=== PATIENT | male | born 1935 | race Hispanic/Latino ===

== ENCOUNTER 2017-10-06 20:36 | Inpatient (IN) | payer MEDICARE, MEDICAID, SELFPAY ==
[2017-10-06 20:37] VITALS: BP 168/99; PULSE 98; RESP 24; TEMP 36.3; O2SAT 97; BMI 29.2
--- NOTE | 2017-10-06 20:54 | EKG12_ITS ---
Test Reason : SOB Blood Pressure : / mmHG Vent. Rate : 096 BPM Atrial Rate : 096 BPM P-R Int : 152 ms QRS Dur : 096 ms QT Int : 354 ms P-R-T Axes : -23 104 075 degrees QTc Int : 447 ms Normal sinus rhythm Inferior ID, age undetermined, cannot be excluded Lateral ID, age undetermined, cannot be excluded Confirmed by MIRELLA SANTO, RABIA ([id number]), content editor ROLF MERLOS ([id number]) on 10/08/2017 2:15:29 PM Referred By: DR MOORE Confirmed By:RABIA VU MD
--- NOTE | 2017-10-06 20:59 | ED.RN ---
NO OLD EKGS IN MUSE.
--- NOTE | 2017-10-06 21:00 | RAD_ITS ---
STUDY: X-RAY CHEST REASON FOR EXAM: Male, 82 years old. Confusion and dyspnea. TECHNIQUE: Single AP portable view of the chest. COMPARISON: None. FINDINGS: The lungs are hyperexpanded. There are coarsened interstitial markings suggestive of mild chronic fibrosis. In the lung bases, and may be scarring, atelectasis, or even mild infiltrate especially on the left. No gross effusions. Normal size heart. Normal mediastinum and rasheeda. Normal visualized pulmonary arteries. There is atherosclerotic tortuosity of the aortic arch and descending thoracic aorta. Normal visualized thoracic spine. Normal visualized ribs, clavicles, and shoulders. There is no demonstrated abnormality of the visualized soft tissue structures of the upper abdomen. RAD/Chest 1 View (Portable) IMPRESSION: Probable COPD. Probable fibrosis and scarring in the lung bases especially the left. However since there are no prior studies, cannot exclude atelectasis or even infiltrates in the lung bases. Electronically Signed: Janusz Meadows MD at 21:25 EDT , Service support ,
[2017-10-06 21:10] VITALS: PULSE 95; RESP 24
[2017-10-06] MEDS: Ipratropium/Albuterol Sulfate 3 ML AMPUL.NEB INHALATION (21:10)
[2017-10-06 21:37] VITALS: BP 153/93; PULSE 93; RESP 24; O2SAT 94
[2017-10-06] MEDS: 0.9% Normal Saline 1,000 ML 150 ML IV (21:59)
[2017-10-06 22:01] VITALS: BP 164/99; PULSE 94; RESP 30; O2SAT 94
[2017-10-06 22:07] LABS: Absolute Lymphocyte Count 3.61 X10^3/ul (0.83-4.51); Absolute Neutrophil Count 19.7 X10^3/uL (2.0-7.7); Basophil# 0.02 X10^3/uL; Basophil% 0.1 % (0-1); Differential Indicated SCAN CRITERIA MET; Hematocrit 47.4 % (40-54); Hemoglobin 14.9 g/dl (13.0-16.5); Lymphocyte # 3.61 X10^3/ul (4.0); Lymphocyte % 14.4 % (19-41); Mean Corp Hgb Conc 31.4 g/gl (32-36); Mean Corpuscular Volume 82.7 fL (80-94); Mean Platelet Vol. 11.3 fl (6.2-12.0); Monocyte# 1.65 X10^3/uL; Monocyte% 6.6 % (0-10); Neutrophil # 19.73 X10^3/uL (2.7-7.7); Neutrophil % 78.7 % (47-70); POSITIVE COUNT NO; POSITIVE DIFFERENTIAL YES; POSITIVE MORPHOLOGY NO; Platelet Count 144 K/mm3 (150-450); RBC Distribution Width SD 45.4 fl (35.1-43.9); Red Blood Count 5.73 M/mm3 (4.6-6.2); White Blood Count 25.1 K/mm3 (4.4-11.0)
--- NOTE | 2017-10-06 22:09 | NURSING ---
daughter Anali Rossi called for an update on patient. Gave contact number [phone] and [phone]. wants update if patient is admitted or discharged
--- NOTE | 2017-10-06 22:10 | CT_ITS ---
STUDY: CT BRAIN WITHOUT CONTRAST REASON FOR EXAM: Male, 82 years old. Confusion RADIATION DOSAGE (If Supplied By Facility): CTDIvol = ( ) mGy, DLP = ( ) mGycm TECHNIQUE: Transaxial CT imaging of the brain was performed without administration of intravenous contrast material. Individualized dose optimization techniques were used for this CT. COMPARISON: None. Findings: Normal soft tissue structures. Normal calvarium. There is mild cerebral atrophy with widening of the extra-axial spaces and ventricular dilatation. There is decreased attenuation within the white matter tracks of the supratentorial brain, consistent with chronic microvascular ischemic disease changes. 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 Brainstem within normal limits. There is mild cerebellar atrophy. There is no intracranial hemorrhage. There are no findings of an acute ischemic infarction. Visualized paranasal sinuses are within normal limits. CT/Brain/Head without Contrast IMPRESSION: Chronic involutional changes of the brain. No definite acute abnormality. Electronically Signed: Janusz Meadows MD at 22:29 EDT , Service support ,
[2017-10-06 22:20] LABS: Anion Gap 8 (5-15); BUN 20 mg/dL (7-18); BUN/Creat Ratio 12.8 RATIO (10-20); Calcium,Total 8.8 mg/dL (8.5-10.1); Chloride 97 mmol/L (98-107); Creatinine, Serum 1.56 mg/dL (0.70-1.30); EST Glomerular Filtration Rate 46 mL/min (>60); Est Glom Filt Rate - Afr Amer 55 mL/min (>60); Estimated Creatinine Clearance 32.31 ml/min; Glucose 113 mg/dL (74-106); Sodium Level 135 mmol/L (136-145)
[2017-10-06 22:35] LABS: Differential Comment SCANNED; Platelet Estimate SLT DEC (ADEQ)
[2017-10-06 22:38] LABS: Bacteria 0 SEEN /hpf (None Seen); Mucous, Urine 0 SEEN /hpf (<or=2+)
[2017-10-06 22:41] LABS: Color, Urine Amber (Yellow); Glucose, Dipstick 100 mg/dl (Normal); Ketone-Dipstick 5 mg/dl (Negative); Leukocyte Esterase-Dipstick 25 /ul (Negative); Nitrite-Dipstick Positive (Negative); Occult Blood-Urine 50 /ul (Negative); Protein-Dipstick 30 mg/dl (Negative); Specific Gravity, Urine 1.025 (1.002-1.030); Urine Clarity Sl. Cloudy (Clear); Urine Urobilinogen 4 mg/dl (Normal)
[2017-10-06 22:45] LABS: Urine Bilirubin Dipstick 3 mg/dL (Negative)
[2017-10-06 22:54] LABS: Red Blood Cells-Urine 5-10 SEEN /hpf (0-5); White Blood Cells 0-5 SEEN /hpf (0-5)
[2017-10-06 22:55] LABS: Squamous Epithelial Cells - UA 0-5 SEEN /hpf (0-5)
[2017-10-06 23:00] VITALS: BP 162/94; PULSE 88; RESP 28; O2SAT 94
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
--- NOTE | 2017-10-06 23:08 | ED.RN ---
spoke with daughter obtained insurance information. She is requesting patient is not discharged home until she is here to pick him up for safety reasons
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
[2017-10-06 23:25] LABS: Allen Test POS; Base Excess 3 mmol/L (-2 to +2); Bicarbonate 28.8 mmol/L (22-26); Blood Gas Specimen Type ART; O2 Delivery Device Nasal Can; PO2 68 mmHG (75-100); SITE L Radial; SO2 92 % (95-99); Time Given 2313; Total Carbon Dioxide 30 mmol/L; pCO2 52.5 mmHg (35-45); pH 7.35 (7.35-7.45)
[2017-10-06] MEDS: MethylPREDNISolone 125 MG/2 ML Vial IV (23:26)
[2017-10-06] MEDS: levoFLOXacin IV 750 MG/150 ML BAG 100 MG IV (23:26)
[2017-10-06 23:29] VITALS: BP 162/94; PULSE 92; RESP 22; O2SAT 93
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
[2017-10-07] VITALS (8 sets, daily range): BP systolic 124–150; BP diastolic 75–105; PULSE 67–94; RESP 16–20; TEMP 36.2–37.1; O2SAT 84–95; BMI 29.6; BMI 29.7
[2017-10-07] MEDS: Ceftriaxone 1 GM/50 ML BAG IV (01:06)
[2017-10-07] MEDS: 0.9% Normal Saline 1,000 ML 150 ML IV (05:38)
[2017-10-07 06:13] LABS: Hemoglobin 14.2 g/dl (13.0-16.5); Mean Corp Hgb Conc 31.6 g/gl (32-36); Mean Corpuscular Hgb 26.2 pg (27.0-32.0); Mean Platelet Vol. 11.7 fl (6.2-12.0); Platelet Count 141 K/mm3 (150-450); RBC Distribution Width CV 15.1 % (11.6-14.6); RBC Distribution Width SD 46.1 fl (35.1-43.9); Red Blood Count 5.42 M/mm3 (4.6-6.2); White Blood Count 19.2 K/mm3 (4.4-11.0)
[2017-10-07 06:14] LABS: Scan Indicated on CBC? Y/N NO
[2017-10-07 06:20] LABS: Anion Gap 7 (5-15); BUN 20 mg/dL (7-18); BUN/Creat Ratio 14.8 RATIO (10-20); Calcium,Total 8.2 mg/dL (8.5-10.1); Chloride 102 mmol/L (98-107); Creatinine, Serum 1.35 mg/dL (0.70-1.30); EST Glomerular Filtration Rate 54 mL/min (>60); Est Glom Filt Rate - Afr Amer 65 mL/min (>60); Estimated Creatinine Clearance 35.93 ml/min; Glucose 156 mg/dL (74-106); Potassium 4.1 mmol/L (3.5-5.1); Sodium Level 138 mmol/L (136-145)
[2017-10-07] MEDS: Ipratropium/Albuterol Sulfate 3 ML AMPUL.NEB INHALATION ×2 (06:56→22:55)
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
[2017-10-07] MEDS: Enoxaparin 40 MG/0.4 ML Syringe SC (10:05)
--- NOTE | 2017-10-07 10:21 | CASEMGMT ---
Social Work Note SW left message for pt's daughter Anali asking if she will be in today to see pt or to have her call this worker back to discuss discharge planning. SW will wait to hear back from pt's daughter. SW will continue to follow to assist with discharge planning. Plan: THELMA Potts ONBOARDING SPECIALIST, RESERVOIR ENGINEERING CONSULTANT
[2017-10-07 10:43] LABS: Erythrocyte Sedimentation Rate 67 mm/hr (0-20)
[2017-10-07 11:11] LABS: Hemoglobin A1c 6.2 % (4.2-6.3)
[2017-10-07 11:26] LABS: Thyroid Stim Hormone (TSH) 0.51 uIU/mL (0.358-3.74)
--- NOTE | 2017-10-07 11:45 | CASEMGMT ---
Addendum entered by Raina Potts 10/07/17 14:45: Per pt's daughter, pt's PCP is Nina Lorenzo at [facility]. Original Note: Social Work Note SW received call from pt's daughter Anali. Anali provided new number for SW to call [phone] room [id number]. Per Anali she has three sisters but they are not involved in pt's life and it has always been just her and her dad. Pt states that pt's and then pt got worse. Anali states that pt doesn't want to take medications, will just take off and would prefer to live alone. Pt states that pt was living in [place], [place] in an apartment by himself. Anali states that the apartment had bed bugs and the apartment is to be exterminated this . Pt states that yesterday pt was supposed to drive to see daughter in [place] and that is when police found him on the road in his car. Anali states that she told the police to bring pt to hospital. Anali states that she would prefer for pt to live with her but that pt adamantly refuses to live with her. Anali states that she and her are currently looking for an apartment. Anali states that she currently living in Motels while searching for an apartment. Anali states that she and her and pt's friend all agree that pt would be better in an assisted living facility where he can have care but still be independent. SW explained that assisted living would be private pay for pt. SW explained that another option would be for pt to go to a SNF short term at first under Medicare or he can go to a SNF merchandiser seasonal under his Medicaid. Pt's daughter states understanding. She states that she would like a SNF in [place], [place]. SW verbally provided list of SNF in [place], [place]. Anali states that SNF would be the best option for pt at this time but states that pt will refuse to go anywhere. SW explained guardianship process to Anali and encouraged her to talk to pt's PCP to begin guardianship process. Anali states understanding. Anali states that pt currently has a CM through [employer]. Per Anali his CM is named Dylan and his number is [phone]. SW informed Anali that this worker will meet with pt to discuss discharge planning. Anali states that she is hoping to find a ride to Hospital today to visit pt. LEELA spoke with Dr. Salas about this. Dr. Salas states that pt is alert and orientated x3 and was able to answer questions correctly. SW informed Dr. Salas that this worker will be calling [employer] and can supply supervisor and other social workers to see if they have insight about situation. SW will see pt as well to determine discharge planning. Plan: THELMA Potts TRACTOR ENGINE ASSEMBLER, ACADEMIC HOSPITALIST
--- NOTE | 2017-10-07 12:17 | CASEMGMT ---
Social work Note LEELA met with pt to discuss discharge planning. SW introduced self and role at [facility]. Pt is alert and orientated x3 and answered questions appropriately. Pt states that he was living alone in an apartment and that he was previously independent with ADLs. Pt states that he has family and friends around him for support. Pt states that he was taking his medications and denied having recent confusion. Pt states that he was going to see his doctor when he took a wrong turn. Pt states that he wears oxygen at home and while he is sleeping. He denied additional DME. Pt states that he feels like he is able to take care of himself and that he would like to return to his apartment at discharge. SW explained to pt that his daughter Anali had some concerns about pt's safety and pt states that he would move in with his daughter. Pt denied additional needs or concerns at this time. SW placed a call to pt's daughter Anali and left a message for her updating her on this worker's conversation with pt. LEELA explained to Anali that pt is alert and orientated and answered questions appropriately and at this time denied placement stating that he would like to go back home or to live with his daughter. LEELA once again educated Anali on guardianship process and encouraged her to speak with pt's PCP to begin guardianship process. LEELA educated pt on Home Health services and suggested that Home Health may be an option for pt for detention, aides, or SW to meet with pt in his apartment. SW will continue to follow along to assist with discharge planning. Plan: TBD. Pt would like to return to his apartment at discharge or move in with his daughter Raina Potts DONKEY RIDE OPERATOR, MICROARRAY ANALYST
[2017-10-07] MEDS: Famotidine 20 MG Tablet PO (13:14)
[2017-10-07] MEDS: predniSONE 20 MG Tablet 40 MG PO (13:14)
[2017-10-07] MEDS: amLODIPine 10 MG Tablet PO (13:14)
[2017-10-07 13:20] LABS: Pathologist Review Reviewed
--- NOTE | 2017-10-07 14:40 | CASEMGMT ---
Social Work Note Dr. Salas informed this worker that she would like an APS report made on pt. SW placed a call to [facility] and spoke with Yessi Le and provided APS referral. Plan: TBStevie Potts AND RESCUE FIRE FIGHTER CRASH FIRE, BANQUET BARTENDER
[2017-10-07] MEDS: 0.9% Normal Saline 1,000 ML 75 ML IV (14:56)
[2017-10-08] VITALS (11 sets, daily range): BP systolic 127–145; BP diastolic 70–87; PULSE 64–84; RESP 16–21; TEMP 36.2–36.6; O2SAT 2–97
[2017-10-08] MEDS: 0.9% Normal Saline 1,000 ML 75 ML IV ×2 (05:46→17:58)
[2017-10-08 05:47] LABS: Hematocrit 41.5 % (40-54); Hemoglobin 12.9 g/dl (13.0-16.5); Mean Corp Hgb Conc 31.1 g/gl (32-36); Mean Corpuscular Hgb 26.2 pg (27.0-32.0); Mean Corpuscular Volume 84.2 fL (80-94); Mean Platelet Vol. 11.9 fl (6.2-12.0); Platelet Count 140 K/mm3 (150-450); RBC Distribution Width CV 15.3 % (11.6-14.6); RBC Distribution Width SD 46.7 fl (35.1-43.9); Red Blood Count 4.93 M/mm3 (4.6-6.2); White Blood Count 16.5 K/mm3 (4.4-11.0)
[2017-10-08 05:48] LABS: Scan Indicated on CBC? Y/N NO
--- NOTE | 2017-10-08 05:55 | RAD_ITS ---
STUDY: X-RAY CHEST REASON FOR EXAM: Male, 82 years old. Confusion. COPD. TECHNIQUE: Single AP portable view of the chest. COMPARISON: Comparison is made with prior study dated October 06, 2017. FINDINGS: Hyperinflation. Mild residual increased markings at the lung bases likely more prominent on the left side suggestive of scarring. There has been improvement as compared to prior study. There is no demonstrated pleural abnormality. There is borderline cardiomegaly. Normal mediastinum and rasheeda. Normal visualized pulmonary arteries. There is atherosclerotic tortuosity of the aortic arch and descending thoracic aorta. Normal visualized thoracic spine. Normal visualized ribs, clavicles, and shoulders. There is no demonstrated abnormality of the visualized soft tissue structures of the upper abdomen. RAD/Chest 1 View (Portable) IMPRESSION: Mild residual increased markings at the lung bases although there has been improvement. Electronically Signed: Ruiz Ratliff MD at 12:23 EDT Tel [phone], Service support ,
[2017-10-08 06:02] LABS: ALB/GLOB Ratio 0.6 RATIO (0.9-2.4); AST(SGOT) 14 U/L (15-37); Alanine Aminotransfer ALT/SGPT 17 U/L (16-61); Albumin, Serum 2.5 g/dL (3.2-5.0); Alkaline Phosphatase 85 U/L (45-117); Anion Gap 8 (5-15); BUN 22 mg/dL (7-18); BUN/Creat Ratio 22.4 RATIO (10-20); Calcium,Total 8.7 mg/dL (8.5-10.1); Chloride 107 mmol/L (98-107); Cholesterol 170 mg/dL (200); Creatinine, Serum 0.98 mg/dL (0.70-1.30); EST Glomerular Filtration Rate 78 mL/min (>60); Est Glom Filt Rate - Afr Amer 94 mL/min (>60); Globulin 3.9 g/dL (2.2-4.2); Glucose 197 mg/dL (74-106); High Density Lipoprotein 28 mg/dL; Phosphorus 2.3 mg/dL (2.5-4.9); Potassium 4.3 mmol/L (3.5-5.1); Protein, Total 6.4 g/dL (6.4-8.2); Sodium Level 143 mmol/L (136-145); Triglycerides 160 mg/dL; Very Low Density Lipoprotein 32 mg/dL (5-40)
[2017-10-08] MEDS: Ipratropium/Albuterol Sulfate 3 ML AMPUL.NEB INHALATION ×3 (07:00→19:17)
--- NOTE | 2017-10-08 07:18 | PCM.PROGNOTE ---
Patient Problems: Active and Suspected Problems Confusion (Acute) COPD (chronic obstructive pulmonary disease) (Acute) Subjective: Day #3 Rocephin and azithromycin Afebrile since admission. Blood pressure is now controlled since he is on his prescribed medications for hypertension. White blood cell count continues to improve and is 16.5 today. Hemoglobin is 12.9 and platelets are stable at 140,000. Sed rate was 67. Mean is now normal at 0.98 with a BUN of 22. Hemoglobin A1c was 6.2. Phosphorus is low at 2.3 and the magnesium is normal at 2. CRP was 283 and the BNP was 37. LFTs are unremarkable. TSH was normal at 0.51. LDL is 110 with an HDL of 28. Triglycerides were 160. Objective: General: Alert, Oriented x3, Cooperative, No apparent distress, Well developed, Well nourished HEENT: Atraumatic, EOMI, Normocephalic, - - There is some DC from the left eye, no injection Oral: No Gingival or Mucosal Lesions/ Ulcerations, Dry Mucosa Neck: Supple, Trachea Midline Lungs: No rales, Diminished, Wheezes, - - Symmetric chest expansion, no accessory muscle use, no conversational dyspnea Cardiovascular: Regular rate, Regular Rhythm, Normal S1, Normal S2, No murmurs, No Ectopic Activity, No rub noted, No Gallop Abdomen: Bowel Sounds Present, Soft, Non Tender, Non-Distended Extremities: No clubbing, No cyanosis, No edema, No Calf Tenderness, Peripheral Pulses Normal Skin: No rashes, No breakdown Musculoskeletal: No Muscle Wasting, Arthritic Changes Neurological: Cranial nerves II-XII grossly intact, Neuro grossly intact Psych/Mental Status: Appropriate - Physical Exam Vital Signs Temp Pulse Resp BP Pulse Ox 97.1 F L 72 18 145/83 H 94 10/08/17 02:07 10/08/17 02:07 10/08/17 02:07 10/08/17 02:07 10/08/17 02:07 Oxygen Flow Rate (L/min) 3 Oxygen Delivery Method Nasal Cannula Weight: 172 lb 13.478 oz Body Mass Index (BMI) 29.6 Intake and Output for Last 24 Hours 10/06/17 10/07/17 10/08/17 23:59 23:59 23:59 Intake Total 2015 1501 / 1501 Balance 2015 1501 / 1501 Microbiology Past 72 Hours 10/07/17 13:20 Legionella Antigen - Final Urine, Clean Catch 10/07/17 13:20 Streptococcus pneumoniae Antigen (M - Final Urine, Clean Catch Laboratory Tests Past 24 Hrs 10/07/17 10/07/17 10/07/17 10:16 10:16 10:16 WBC RBC Hgb Hct MCV MCH MCHC RDW RDW Differential Plt Count MPV ESR 67 H Sodium Potassium Chloride Carbon Dioxide Anion Gap BUN Creatinine Estim Creat Clear Calc Est GFR (MDRD) Af Amer Est GFR (MDRD) Non-Af BUN/Creatinine Ratio Glucose Hemoglobin A1c 6.2 Calcium Phosphorus Magnesium Total Bilirubin AST ALT Alkaline Phosphatase C-React Prot Ext Range 283.00 H B-Natriuretic Peptide Total Protein Albumin Globulin Albumin/Globulin Ratio Triglycerides Cholesterol LDL Cholesterol VLDL Cholesterol HDL Cholesterol Vitamin B12 TSH 0.51 SUZAN Screen SHEREEN-1 Antibody SS-A/Ro IgG Antibody SS-B/La IgG Antibody Sm (Morel) Antibody PHARMACIST INTERN Antibody Scl-70 Scleroderma Ab Double Strand DNA Ab Centromere B Antibody RPR 10/07/17 10/07/17 10/07/17 10:16 10:16 10:16 WBC RBC Hgb Hct MCV MCH MCHC RDW RDW Differential Plt Count MPV ESR Sodium Potassium Chloride Carbon Dioxide Anion Gap BUN Creatinine Estim Creat Clear Calc Est GFR (MDRD) Af Amer Est GFR (MDRD) Non-Af BUN/Creatinine Ratio Glucose Hemoglobin A1c Calcium Phosphorus Magnesium Total Bilirubin AST ALT Alkaline Phosphatase C-React Prot Ext Range B-Natriuretic Peptide Total Protein Albumin Globulin Albumin/Globulin Ratio Triglycerides Cholesterol LDL Cholesterol VLDL Cholesterol HDL Cholesterol Vitamin B12 Pending TSH SUZAN Screen Pending SHEREEN-1 Antibody Pending SS-A/Ro IgG Antibody Pending SS-B/La IgG Antibody Pending Sm (Morel) Antibody Pending PHARMACIST INTERN Antibody Pending Scl-70 Scleroderma Ab Pending Double Strand DNA Ab Pending Centromere B Antibody Pending RPR Pending 10/07/17 10/08/17 10/08/17 10:16 05:04 05:04 WBC 16.5 H RBC 4.93 Hgb 12.9 L Hct 41.5 MCV 84.2 MCH 26.2 L MCHC 31.1 L RDW 15.3 H RDW Differential 46.7 H Plt Count 140 L MPV 11.9 ESR Sodium 143 Potassium 4.3 Chloride 107 Carbon Dioxide 28.0 Anion Gap 8 BUN 22 H Creatinine 0.98 Estim Creat Clear Calc 49.50 Est GFR (MDRD) Af Amer 94 Est GFR (MDRD) Non-Af 78 BUN/Creatinine Ratio 22.4 H Glucose 197 H Hemoglobin A1c Calcium 8.7 Phosphorus 2.3 L Magnesium 2.0 Total Bilirubin 0.10 L AST 14 L ALT 17 Alkaline Phosphatase 85 C-React Prot Ext Range B-Natriuretic Peptide 37.0 Total Protein 6.4 Albumin 2.5 L Globulin 3.9 Albumin/Globulin Ratio 0.6 L Triglycerides 160 Cholesterol 170 LDL Cholesterol 110 VLDL Cholesterol 32 HDL Cholesterol 28 L Vitamin B12 TSH SUZAN Screen SHEREEN-1 Antibody SS-A/Ro IgG Antibody SS-B/La IgG Antibody Sm (Morel) Antibody PHARMACIST INTERN Antibody Scl-70 Scleroderma Ab Double Strand DNA Ab Centromere B Antibody RPR Medical Necessity - Tobacco Use Smoking Status: Former smoker Assessment/Plan Active and Suspected Problems Confusion (Acute) COPD (chronic obstructive pulmonary disease) (Acute) Impressions 1. CAP 2. acute encephalopathy on underlying dementia - likely multifactorial and due to infection, dehydration, hypoxia....he has O2 at home but the dtr states he never wears it. Pulse ox with ambulation today on RA was 87%. 3. HTN - suspect non-compliance with meds and the dtr confirms this....BP today is good now that he is on appropriate meds 4. suspected conjunctivitis Left eye 5. GERD? - he is on Omeprazole 6. COPD with acute exacerbation 7. acute respiratory failure with hypoxemia and hypercarbia 8. former smoker - quit many years ago per the dtr 9. suspect Alzheimer's - will order testing to rule out treatable causes of memory loss. TSH and B12 are within normal limits. SUZAN was negative. RPR is pending. 10. CRF? no baseline lab to compare with 11. Hyponatremia - resolved 12. conjunctivitis left eye - prelim is growing a staph species Will need oxygen at home when active. Dtr will be able to take him home tomorrow. He is alert and oriented X 3 and appropriate......Can not declare incompetent just because he wants to do what he wants. 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 May need to call Adult Protective Services as he obviously needs more supervision than he is getting. Code Visit Inpatient E&M: 49680 Subs Hosp L2
[2017-10-08] MEDS: Famotidine 20 MG Tablet PO (07:58)
[2017-10-08] MEDS: amLODIPine 10 MG Tablet PO (07:58)
[2017-10-08] MEDS: predniSONE 20 MG Tablet 40 MG PO (07:58)
[2017-10-08 08:51] LABS: Vitamin B12 355 pg/mL (211-911)
[2017-10-08] MEDS: Enoxaparin 40 MG/0.4 ML Syringe SC (09:01)
[2017-10-08] MEDS: Ceftriaxone 1 GM/50 ML BAG IV (10:32)
[2017-10-08 14:37] LABS: ANTINUCLEAR ANTIBODIES DIRECT Negative (Negative)
--- NOTE | 2017-10-08 17:11 | CASEMGMT ---
Social Work Note LEELA met with pt's daughter Anali to confirm discharge plans. SW informed Anali that the doctor is ready to discharge patient tonight. Anali states that she would like pt to stay one more night tonight and then she will come back to the hospital tomorrow to get pt. Anali states that she has paid for another night in the motel that she is currently living at and that pt's apartment is getting exterminated tomorrow morning. SW encouraged Anali to set up an appointment with pt's PCP to have conversation about guardianship. Anali states understanding and that she will be calling pt's PCP to set up an appointment. LEELA updated Dr. Salas that pt's daughter is requesting one more night and that the daughter will be at the hospital until 5:15 if she would like to discuss discharge plans farther with pt and pt's daughter. It should be noted that pt has denied any needs at this time and has denied SNF placement and Home Health Care. Pt has been alert and orientated x3 and has answered questions appropriately. Per previous conversation with pt, he would like to either return to his home at discharge or live with his daughter. This worker made an APS referral yesterday. SW will continue to follow along to assist with discharge planning. Plan: Return home at discharge Raina Potts MSW, PRINCIPAL LIBRARIAN
[2017-10-09] VITALS (10 sets, daily range): BP systolic 134–150; BP diastolic 75–92; PULSE 70–80; RESP 16–20; TEMP 36.3–36.8; O2SAT 87–98
[2017-10-09] MEDS: Tobramycin Sulf 0.3% 5ML OPTH.BTL 2 DRP LEFT EYE ×4 (00:25→18:28)
[2017-10-09] MEDS: Ipratropium/Albuterol Sulfate 3 ML AMPUL.NEB INHALATION ×3 (01:02→13:20)
[2017-10-09] MEDS: 0.9% Normal Saline 1,000 ML 75 ML IV (06:32)
[2017-10-09] MEDS: predniSONE 20 MG Tablet 40 MG PO (09:16)
[2017-10-09] MEDS: Ceftriaxone 1 GM/50 ML BAG IV (09:16)
[2017-10-09] MEDS: Enoxaparin 40 MG/0.4 ML Syringe SC (09:17)
[2017-10-09] MEDS: amLODIPine 10 MG Tablet PO (09:17)
[2017-10-09] MEDS: Famotidine 20 MG Tablet PO (09:17)
[2017-10-09] MEDS: Albuterol 2.5 MG/3 ML VIAL.NEB. INHALATION (10:40)
--- NOTE | 2017-10-09 11:33 | PCM.DC ---
- Discharge Diagnoses Current Active Problems: Current Active and Chronic Problems Confusion (Acute) COPD (chronic obstructive pulmonary disease) (Acute) You will use the following diet at home:: No restrictions Your food should be the consistency of: Regular Your liquids should be the consistency of: Regular/Thin Discharge Activity: - - Avoid exposure to any strong smells such as bleach, cleaning products, strong colognes or perfumes, paint fumes and smoke of any kind. Avoid sudden exposure to cold air because this can cause bronchospasm. You may want to cover your mouth when you go outside in the winter. Avoid exposure to anyone who is sick with a cough or sore throat. Call your doctor if you observe: Fever of 101 or Higher, Shortness of breath, Dizziness, Fainting spells, Swelling in the ankles, Chest pain, Calf discomfort Additional Instructions: 1. I am sorry but we need to temporarily take away your [place] driver's license. You were over 90 minutes from where you lived because you took a wrong turn. the police found you at the side of the road and you were very confused. I am afraid if this happens again you may hurt yourself or someone else. 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 2. Make sure to take all of the medications as prescribed. Use the aerosol machine at least 4 times a day while awake. wear your oxygen 24 hours a day. 3. Listen to your daughter, she is trying to protect you and do what is best for you.....she loves you. 4. In addition to the pneumonia you have an infection in the left eye and I have prescribed some antibiotic drops. Get in contact with the doctor that did your catarract surgery and have him give you an appt to get the eye rechecked Allergies/Adverse Reactions: Allergies No Known Allergies Allergy (Verified 10/09/17 00:35) Medications to take at Discharge Amlodipine Besylate [Norvasc] 10 mg PO DAILY 10/07/17 Omeprazole 20 mg PO DAILY 10/07/17 Albuterol Aerosols [Ventolin Aerosols] 2.5 mg INHALATION Q2H PRN PRN #60 vial.neb. 10/09/17 Ipratropium/Albuterol Sulfate [Duoneb] 3 ml INHALATION Q6H.RT #120 ampul.neb 10/09/17 Levofloxacin [Levaquin] 750 mg PO DAILY #5 tab 10/09/17 Lisinopril [Zestril] 5 mg PO DAILY #30 tab 10/09/17 Prednisone 10 mg PO UD #30 tab 10/09/17 Tobramycin Sulf 0.3% [Tobrex] 2 drp LEFT EYE Q6 #1 opth.btl 10/09/17 The following prescriptions were given: Albuterol Aerosols [Ventolin Aerosols] 2.5 mg INHALATION Q2H PRN PRN #60 vial.neb. PRN Reason: DYSPNEA/WHEEZING/SOB Ipratropium/Albuterol Sulfate [Duoneb] 3 ml INHALATION Q6H.RT #120 ampul.neb Levofloxacin [Levaquin] 750 mg PO DAILY #5 tab Lisinopril [Zestril] 5 mg PO DAILY #30 tab Prednisone 10 mg PO UD #30 tab Tobramycin Sulf 0.3% [Tobrex] 2 drp LEFT EYE Q6 #1 opth.btl Primary Care Physician: Town [facility],Out of [Primary Care Provider] - Please follow up with your Primary Care Physician in: 5-7 days Please Follow Up With: eye doctor who did recent surgery When: ANNELIESE Please Follow Up With: Neurologist - Maybe your family doctor can recommend someone When: soon so you could maybe get your [place] driver's license back Proposed Discharge Date: 10/09/17
--- NOTE | 2017-10-09 11:43 | DCINST_ITS ---
- Discharge Diagnoses Current Active Problems: Current Active and Chronic Problems Confusion (Acute) COPD (chronic obstructive pulmonary disease) (Acute) You will use the following diet at home:: No restrictions Your food should be the consistency of: Regular Your liquids should be the consistency of: Regular/Thin Discharge Activity: - - Avoid exposure to any strong smells such as bleach, cleaning products, strong colognes or perfumes, paint fumes and smoke of any kind. Avoid sudden exposure to cold air because this can cause bronchospasm. You may want to cover your mouth when you go outside in the winter. Avoid exposure to anyone who is sick with a cough or sore throat. Call your doctor if you observe: Fever of 101 or Higher, Shortness of breath, Dizziness, Fainting spells, Swelling in the ankles, Chest pain, Calf discomfort Additional Instructions: 1. 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 You were over 90 minutes from where you lived because you took a wrong turn. the police found you at the side of the road and you were very confused. I am afraid if this happens again you may hurt yourself or someone else. 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 2. Make sure to take all of the medications as prescribed. Use the aerosol machine at least 4 times a day while awake. wear your oxygen 24 hours a day. 3. Listen to your daughter, she is trying to protect you and do what is best for you.....she loves you. 4. In addition to the pneumonia you have an infection in the left eye and I have prescribed some antibiotic drops. Get in contact with the doctor that did your catarract surgery and have him give you an appt to get the eye rechecked Allergies/Adverse Reactions: Allergies No Known Allergies Allergy (Verified 10/09/17 00:35) Medications to take at Discharge Amlodipine Besylate [Norvasc] 10 mg PO DAILY 10/07/17 Omeprazole 20 mg PO DAILY 10/07/17 Albuterol Aerosols [Ventolin Aerosols] 2.5 mg INHALATION Q2H PRN PRN #60 vial.neb. 10/09/17 Ipratropium/Albuterol Sulfate [Duoneb] 3 ml INHALATION Q6H.RT #120 ampul.neb 03/19 Levofloxacin [Levaquin] 750 mg PO DAILY #5 tab 10/09/17 Lisinopril [Zestril] 5 mg PO DAILY #30 tab 10/09/17 Prednisone 10 mg PO UD #30 tab 10/09/17 Tobramycin Sulf 0.3% [Tobrex] 2 drp LEFT EYE Q6 #1 opth.btl 10/09/17 The following prescriptions were given: Albuterol Aerosols [Ventolin Aerosols] 2.5 mg INHALATION Q2H PRN PRN #60 vial.neb. 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
--- NOTE | 2017-10-09 12:20 | PCM.DC.SUM ---
Discharge Date and Diagnosis - Problem List Patient Problems: Active and Suspected Problems Acute renal failure (Acute) Alzheimers disease (Suspected) Conjunctivitis (Acute) Acute on chronic respiratory failure with hypoxia and hypercapnia (Acute) Acute exacerbation of chronic obstructive pulmonary disease (COPD) (Acute) GERD (gastroesophageal reflux disease) (Acute) Metabolic encephalopathy (Acute) Community acquired pneumonia (Acute) Date of Admission: 10/06/17 Date of Discharge: 10/09/17 - Primary Discharge Diagnosis Active and Suspected Problems Community acquired pneumonia (Acute) Acute renal failure (Acute) Acute on chronic respiratory failure with hypoxia and hypercapnia (Acute) Acute exacerbation of chronic obstructive pulmonary disease (COPD) (Acute) GERD (gastroesophageal reflux disease) (Acute) Metabolic encephalopathy (Acute) due to infection and hypoxemia Alzheimers disease (Suspected) Conjunctivitis (Acute) - left eye - Secondary Discharge Diagnosis Chronic Problems Former smoker (Chronic) Hypertension (Chronic) COPD (chronic obstructive pulmonary disease) (Chronic) Non-compliance with medication and with oxygen Cerebrovascular disease with old lacunar infarcts Hospital Course and Treatment Imaging Results: Clinical Impression(s) from Imaging Studies Chest X-Ray 10/06/17 21:00 IMPRESSION: Probable COPD. Probable fibrosis and scarring in the lung bases especially the left. However since there are no prior studies, cannot exclude atelectasis or even infiltrates in the lung bases. Electronically Signed: Janusz Meadows MD at 21:25 EDT , Service support , Brain CT 10/06/17 22:10 IMPRESSION: Chronic involutional changes of the brain. No definite acute abnormality. Electronically Signed: Janusz Meadows MD at 22:29 EDT , Service support , Chest X-Ray 10/08/17 05:55 IMPRESSION: Mild residual increased markings at the lung bases although there has been improvement. Electronically Signed: Ruiz Ratliff MD at 12:23 EDT Tel [phone], Service support , Microbiology 10/07/17 13:20 Other - Eye Gram Stain - Final 10/07/17 13:20 Other - Eye Eye Culture - Final Staphylococcus epidermidis 10/07/17 13:20 Other - Eye Anaerobic Culture - Preliminary 10/06/17 22:30 Urine Catheter - Catheter Urine Culture - Final Culture exhibits no growth. 10/06/17 22:45 Blood Culture (Wb) - Anticubital Right Blood Culture - Preliminary No growth in 48 hours. 10/06/17 22:34 Blood Culture (Wb) - Anticubital Left Blood Culture - Preliminary No growth in 48 hours. 10/07/17 14:50 Mucosa - Nasopharyngeal Respiratory Panel (PCR) - Final 10/07/17 13:20 Urine, Clean Catch Legionella Antigen - Final 10/07/17 13:20 Urine, Clean Catch Streptococcus pneumoniae Antigen (M - Final Laboratory Results - last 24 hr 10/07/17 10:16 SUZAN Screen Negative none Operations: None Procedures: None Summary of Care Provided: The patient is an 82-year-old male with a past medical history of COPD who was brought to the emergency room by the Highway Patrol after being found at the side of the road with his car apparently out of gas. The officers felt he was confused. He lives in [facility] [place] [facility] and he was driving to his daughters residence in [place] and took a worng turn and ended up in [place]. In the ED he denied CP or SOB but he was confused. The admitting hospitalist spoke with his dtr because the patient was unable to give any information. His dtr Simon stated he gets confused and wanders for a few years now and it has gotten worse since his . He lives by himself. Vital signs at presentation to the emergency room were temperature 97.4, pulse rate 98, pressure 168/99, respiratory rate 24 and he was 97% saturated on a 3 L nasal cannula. White blood cell count was elevated at 25.1 with 79% neutrophils. Hemoglobin was 14.9 and platelets were mildly decreased at 144,000. ABG on a 3 L nasal cannula showed a pH of 7.35, PCO2 of 52 and a PO2 of 68. Sodium was decreased at 135 and the BUN was 20 with a creatinine of 1.56. Troponin was less than 0.02. UA was nitrite positive and had 0-5 WBCs with 5-10 RBCs. There was glucosuria and a small amount of ketones because he had not been eating or drinking....he had been missing for 24 hours. The specific gravity was 1.025. Chest x-ray showed increased markings in the bases and since we had no prior CXR's we did not know if this was acute or chronic. A repeat CXR later in the admission was improved and the findings at admission were likely due to PNA. CT brain showed cerebral atrophy and cerebellar atrophy. There was decreased attenuation within the white matter tracts consistent with chronic microvascular ischemic disease. 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 He was admitted to the hospital and started on Azithromycin, Rocephin, high dose steroids and inhaled bronchodilators. He improved and became alert and oriented X 3. He spoke to me in [place] and was able to follow my commands in [place]. His breathing improved and a pulse ox on RA at rest was 90% - 97% but, it dropped as low as 83-85% while ambulating on RA. The pulse Ox ambulating on a 2 LPM cannula was 92%. He has oxygen at home but tells me he only wears it at night. His confusion may be related to hypoxemia and non-compliance with oxygen. He is also non-compliant with his meds. I feel that he is not safe operating a car. 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 He was discharged home on 10/09/17 on medications previously listed. 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 She spoke with the SW about how to get POA and she thinks he would be safer in a ECF. He will follow up with his PCP in the next 5-7 days and will also follow up with his bending roll operator regarding left eye conjunctivitis. Ulcer was positive for MRSA E and he has been receiving tobramycin eyedrops with good improvement. He will seek out a neurologist and and request to be evaluated for dementia. TSH, B12 and SUZAN are negative. The RPR is still pending at the time of DC. Creat came down to 0.98. General: Alert, Oriented x3, Cooperative, No apparent distress, Well developed, Well nourished, he is impulsive HEENT: Atraumatic, EOMI, Normocephalic, - - There is no redness and no conjunctival injection of the eyes and there is minimal thin DC present in the medial canthus of the left eye. He denies pain and there is no mattering of the eyelids. Oral: No Gingival or Mucosal Lesions/ Ulcerations, moist mucosa Neck: Supple, Trachea Midline Lungs: No rales, Diminished, Wheezes, - - Symmetric chest expansion, no accessory muscle use, no conversational dyspnea Cardiovascular: Regular rate, Regular Rhythm, Normal S1, Normal S2, No murmurs, No Ectopic Activity, No rub noted, No Gallop Abdomen: Bowel Sounds Present, Soft, Non Tender, Non-Distended Extremities: No clubbing, No cyanosis, No edema, No Calf Tenderness, Peripheral Pulses Normal Skin: No rashes, No breakdown Musculoskeletal: No Muscle Wasting, Arthritic Changes Neurological: Cranial nerves II-XII grossly intact, Neuro grossly intact Psych/Mental Status: Appropriate This note was generated with [employer] dictation software. It may contain incorrect words, spelling, and punctuation that were not noted in checking the note before signing. Discharge Activity: - - Avoid exposure to any strong smells such as bleach, cleaning products, strong colognes or perfumes, paint fumes and smoke of any kind. Avoid sudden exposure to cold air because this can cause bronchospasm. You may want to cover your mouth when you go outside in the winter. Avoid exposure to anyone who is sick with a cough or sore throat. Call your doctor if you observe: Fever of 101 or Higher, Shortness of breath, Dizziness, Fainting spells, Swelling in the ankles, Chest pain, Calf discomfort Home Medications: Medications to take at Discharge Amlodipine Besylate [Norvasc] 10 mg PO DAILY 10/07/17 Omeprazole 20 mg PO DAILY 10/07/17 Albuterol Aerosols [Ventolin Aerosols] 2.5 mg INHALATION Q2H PRN PRN #60 vial.neb. 10/09/17 Ipratropium/Albuterol Sulfate [Duoneb] 3 ml INHALATION Q6H.RT #120 ampul.neb 10/09/17 Levofloxacin [Levaquin] 750 mg PO DAILY #5 tab 10/09/17 Lisinopril [Zestril] 5 mg PO DAILY #30 tab 10/09/17 Prednisone 10 mg PO UD #30 tab 10/09/17 Tobramycin Sulf 0.3% [Tobrex] 2 drp LEFT EYE Q6 #1 opth.btl 10/09/17 Following Prescrptions Were Given to Patient: Albuterol Aerosols [Ventolin Aerosols] 2.5 mg INHALATION Q2H PRN PRN #60 vial.neb. PRN Reason: DYSPNEA/WHEEZING/SOB Ipratropium/Albuterol Sulfate [Duoneb] 3 ml INHALATION Q6H.RT #120 ampul.neb Levofloxacin [Levaquin] 750 mg PO DAILY #5 tab Lisinopril [Zestril] 5 mg PO DAILY #30 tab Prednisone 10 mg PO UD #30 tab Tobramycin Sulf 0.3% [Tobrex] 2 drp LEFT EYE Q6 #1 opth.btl Primary Care Physician: Town Doctor,Out of [Primary Care Provider] - Please follow up with your Primary Care Physician in: 5-7 days Please Follow Up With: eye doctor who did recent surgery When: ANNELIESE Please Follow Up With: Neurologist - Maybe your family doctor can recommend someone When: soon so you could maybe 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
--- NOTE | 2017-10-09 12:35 | DS.PCM_ITS ---
Discharge Date and Diagnosis - Problem List Patient Problems: Active and Suspected Problems Acute renal failure (Acute) Alzheimers disease (Suspected) Conjunctivitis (Acute) Acute on chronic respiratory failure with hypoxia and hypercapnia (Acute) Acute exacerbation of chronic obstructive pulmonary disease (COPD) (Acute) GERD (gastroesophageal reflux disease) (Acute) Metabolic encephalopathy (Acute) Community acquired pneumonia (Acute) Date of Admission: 10/06/17 Date of Discharge: 10/09/17 - Primary Discharge Diagnosis Active and Suspected Problems Community acquired pneumonia (Acute) Acute renal failure (Acute) Acute on chronic respiratory failure with hypoxia and hypercapnia (Acute) Acute exacerbation of chronic obstructive pulmonary disease (COPD) (Acute) GERD (gastroesophageal reflux disease) (Acute) Metabolic encephalopathy (Acute) due to infection and hypoxemia Alzheimers disease (Suspected) Conjunctivitis (Acute) - left eye - Secondary Discharge Diagnosis Chronic Problems Former smoker (Chronic) Hypertension (Chronic) COPD (chronic obstructive pulmonary disease) (Chronic) Non-compliance with medication and with oxygen Cerebrovascular disease with old lacunar infarcts Hospital Course and Treatment Imaging Results: Clinical Impression(s) from Imaging Studies Chest X-Ray 10/06/17 21:00 IMPRESSION: Probable COPD. Probable fibrosis and scarring in the lung bases especially the left. However since there are no prior studies, cannot exclude atelectasis or even infiltrates in the lung bases. Electronically Signed: Janusz Meadows MD at 21:25 EDT , Service support , Brain CT 10/06/17 22:10 IMPRESSION: Chronic involutional changes of the brain. No definite acute abnormality. Electronically Signed: Janusz Meadows MD at 22:29 EDT , Service support , Chest X-Ray 10/08/17 05:55 IMPRESSION: Mild residual increased markings at the lung bases although there has been improvement. Electronically Signed: Ruiz Ratliff MD at 12:23 EDT Tel [phone], Service support , Microbiology 10/07/17 13:20 Other - Eye Gram Stain - Final 10/07/17 13:20 Other - Eye Eye Culture - Final Staphylococcus epidermidis 10/07/17 13:20 Other - Eye Anaerobic Culture - Preliminary 10/06/17 22:30 Urine Catheter - Catheter Urine Culture - Final Culture exhibits no growth. 10/06/17 22:45 Blood Culture (Wb) - Anticubital Right Blood Culture - Preliminary No growth in 48 hours. 10/06/17 22:34 Blood Culture (Wb) - Anticubital Left Blood Culture - Preliminary No growth in 48 hours. 10/07/17 14:50 Mucosa - Nasopharyngeal Respiratory Panel (PCR) - Final 10/07/17 13:20 Urine, Clean Catch Legionella Antigen - Final 10/07/17 13:20 Urine, Clean Catch Streptococcus pneumoniae Antigen (M - Final Laboratory Results - last 24 hr 10/07/17 10:16 SUZAN Screen Negative none Operations: None Procedures: None Summary of Care Provided: The patient is an 82-year-old male with a past medical history of COPD who was brought to the emergency room by the Highway Patrol after being found at the side of the road with his car apparently out of gas. The officers felt he was confused. He lives in [facility] and he was driving to his daughters residence in [facility] and took a worng turn and ended up in [place]. In the ED he denied CP or SOB but he was confused. The admitting hospitalist spoke with his dtr because the patient was unable to give any information. His dtr Simon stated he gets confused and wanders for a few years now and it has gotten worse since his . He lives by himself. Vital signs at presentation to the emergency room were temperature 97.4, pulse rate 98, pressure 168/99, respiratory rate 24 and he was 97% saturated on a 3 L nasal cannula. White blood cell count was elevated at 25.1 with 79% neutrophils. Hemoglobin was 14.9 and platelets were mildly decreased at 144,000. ABG on a 3 L nasal cannula showed a pH of 7.35, PCO2 of 52 and a PO2 of 68. Sodium was decreased at 135 and the BUN was 20 with a creatinine of 1.56. Troponin was less than 0.02. UA was nitrite positive and had 0-5 WBCs with 5-10 RBCs. There was glucosuria and a small amount of ketones because he had not been eating or drinking....he had been missing for 24 hours. The specific gravity was 1.025. Chest x-ray showed increased markings in the bases and since we had no prior CXR's we did not know if this was acute or chronic. A repeat CXR later in the admission was improved and the findings at admission were likely due to PNA. CT brain showed cerebral atrophy and cerebellar atrophy. There was decreased attenuation within the white matter tracts consistent with chronic microvascular ischemic disease. 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 He was admitted to the hospital and started on Azithromycin, Rocephin, high dose steroids and inhaled bronchodilators. He improved and became alert and oriented X 3. He spoke to me in Belgian and was able to follow my commands in Belgian. His breathing improved and a pulse ox on RA at rest was 90% - 97% but, it dropped as low as 83-85% while ambulating on RA. The pulse Ox ambulating on a 2 LPM cannula was 92%. He has oxygen at home but tells me he only wears it at night. His confusion may be related to hypoxemia and non- compliance with oxygen. He is also non-compliant with his meds. I feel that he is not safe operating a car. 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 He was discharged home on 10/09/17 on medications previously listed. I spoke with his dtr and explained his diagnoses and the suspension of his residential driver' s license. She spoke with the SW about how to get POA and she thinks he would be safer in a ECF. He will follow up with his PCP in the next 5-7 days and will also follow up with his time study technician regarding left eye conjunctivitis. Ulcer was positive for MRSA E and he has been receiving tobramycin eyedrops with good improvement. He will seek out a neurologist and and request to be evaluated for dementia. TSH, B12 and SUZAN are negative. The RPR is still pending at the time of DC. Creat came down to 0.98. General: Alert, Oriented x3, Cooperative, No apparent distress, Well developed, Well nourished, he is impulsive HEENT: Atraumatic, EOMI, Normocephalic, - - There is no redness and no conjunctival injection of the eyes and there is minimal thin DC present in the medial canthus of the left eye. He denies pain and there is no mattering of the eyelids. Oral: No Gingival or Mucosal Lesions/ Ulcerations, moist mucosa Neck: Supple, Trachea Midline Lungs: No rales, Diminished, Wheezes, - - Symmetric chest expansion, no accessory muscle use, no conversational dyspnea Cardiovascular: Regular rate, Regular Rhythm, Normal S1, Normal S2, No murmurs, No Ectopic Activity, No rub noted, No Gallop Abdomen: Bowel Sounds Present, Soft, Non Tender, Non-Distended Extremities: No clubbing, No cyanosis, No edema, No Calf Tenderness, Peripheral Pulses Normal Skin: No rashes, No breakdown Musculoskeletal: No Muscle Wasting, Arthritic Changes Neurological: Cranial nerves II-XII grossly intact, Neuro grossly intact Psych/Mental Status: Appropriate This note was generated with [employer] dictation software. It may contain incorrect words, spelling, and punctuation that were not noted in checking the note before signing. Discharge Activity: - - Avoid exposure to any strong smells such as bleach, cleaning products, strong colognes or perfumes, paint fumes and smoke of any kind. Avoid sudden exposure to cold air because this can cause bronchospasm. You may want to cover your mouth when you go outside in the winter. Avoid exposure to anyone who is sick with a cough or sore throat. Call your doctor if you observe: Fever of 101 or Higher, Shortness of breath, Dizziness, Fainting spells, Swelling in the ankles, Chest pain, Calf discomfort Home Medications: Medications to take at Discharge Amlodipine Besylate [Norvasc] 10 mg PO DAILY 10/07/17 Omeprazole 20 mg PO DAILY 10/07/17 Albuterol Aerosols [Ventolin Aerosols] 2.5 mg INHALATION Q2H PRN PRN #60 vial.neb. 10/09/17 Ipratropium/Albuterol Sulfate [Duoneb] 3 ml INHALATION Q6H.RT #120 ampul.neb 03/19 Levofloxacin [Levaquin] 750 mg PO DAILY #5 tab 10/09/17 Lisinopril [Zestril] 5 mg PO DAILY #30 tab 10/09/17 Prednisone 10 mg PO UD #30 tab 10/09/17 Tobramycin Sulf 0.3% [Tobrex] 2 drp LEFT EYE Q6 #1 opth.btl 10/09/17 Following Prescrptions Were Given to Patient: Albuterol Aerosols [Ventolin Aerosols] 2.5 mg INHALATION Q2H PRN PRN #60 vial.neb. PRN Reason: DYSPNEA/WHEEZING/SOB Ipratropium/Albuterol Sulfate [Duoneb] 3 ml INHALATION Q6H.RT #120 ampul.neb Levofloxacin [Levaquin] 750 mg PO DAILY #5 tab Lisinopril [Zestril] 5 mg PO DAILY #30 tab Prednisone 10 mg PO UD #30 tab Tobramycin Sulf 0.3% [Tobrex] 2 drp LEFT EYE Q6 #1 opth.btl Primary Care Physician: Town Doctor,Out of [Primary Care Provider] - Please follow up with your Primary Care Physician in: 5-7 days Please Follow Up With: eye doctor who did recent surgery When: ANNELIESE Please Follow Up With: Neurologist - Maybe your family doctor can recommend someone When: soon so you could 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
[2017-10-09] MEDS: Lisinopril 5 MG Tablet PO (13:01)
--- NOTE | 2017-10-09 17:41 | CASEMGMT ---
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 SW in to have pt sign release of information form for [facility]. SW explained to pt that the doctor would like his medical information to be sent to [facility]. Pt signed release of information. Copy on pt's chart. Original was mailed to [place] [employer]. LEELA placed a call to Krysta SCHUMACHER, seed sales manager and Krysta states that Dr. Salas should've told the pt that she was going to revoke his drivers license. Plan: Pt to discharge home [place] with his daughter transporting him Raina Potts SEE WHEELER, FIRE SPRINKLER FITTER
[2017-10-10 01:12] LABS: Rapid Plasmin Reagin (RPR) NONREACTIVE (NONREACTIVE)
== END 2017-10-09 18:35 | disposition home or self-care (01) | DRG 190 ==
LOC: ED 23:06 → MS3 23:48
PROVIDERS: Admitting Provider Family Medicine; Emergency Provider Emergency Medicine; Visit Provider Internal Medicine
DX: J44.0 Chronic obstructive pulmonary disease with (acute) lower respiratory infection (principal); J18.9 Pneumonia, unspecified organism; G93.41 Metabolic encephalopathy; J96.21 Acute and chronic respiratory failure with hypoxia; J96.22 Acute and chronic respiratory failure with hypercapnia; E87.1 Hypo-osmolality and hyponatremia; N17.9 Acute kidney failure, unspecified; E86.0 Dehydration; G30.9 Alzheimer's disease, unspecified; F02.80 Dementia in other diseases classified elsewhere, unspecified severity, without behavioral disturbance, psychotic disturbance, mood disturbance, and anxiety; H10.32 Unspecified acute conjunctivitis, left eye; J44.1 Chronic obstructive pulmonary disease with (acute) exacerbation; E11.9 Type 2 diabetes mellitus without complications; I10 Essential (primary) hypertension; K21.9 Gastro-esophageal reflux disease without esophagitis; Z96.642 Presence of left artificial hip joint; Z91.14 Patient's other noncompliance with medication regimen; Z79.899 Other long term (current) drug therapy; Z87.891 Personal history of nicotine dependence
CPT/HCPCS: 36415; 36600; 70450; 71045; 80048; 80053; 80061; 81001; 82607; 82803; 83036; 83735; 83880; 84100; 84443; 84484; 85025; 85027; 85652; 86038; 86140; 86225; 86235; 86592; 87040; 87070; 87075; 87077; 87086; 87186; 87205; 87449; 87633; 93005; 94640; 97802; 99285; J7030; A4216